=== PATIENT | female | born 1955 | race Two or more races ===

== ENCOUNTER → 2018-09-14 | Outpatient (CLI) | payer MEDICARE, BC ==
[~2018-09-14] MED LIST: GABA100C14 PO; HYDR-3498 PO
--- NOTE | 2018-09-14 12:21 | PN ---
Date/Time of Note Date/Time of Note DATE: 09/14/18 TIME: 12:14 Assessment/Plan VTE Prophylaxis Pharmacological prophylaxis: NA/contraindicated Pharm contraindication: low risk/ambulating Assessment/Plan Assessment/Plan 63-year-old female with advanced osteoarthritis of her knees. The right knee is worse than the left. She has failed conservative treatment including inje ctions, medications and physical therapy for the past 6 months. Her walking ability is limited to 1-2 blocks. She has reached a point where she would like to proceed with surgical treatment. Total knee replacement was discussed. Implant materials and surgical techniques were discussed. Potential risks and benefits discussed. The patient will be scheduled for right total knee replacement in the near future Subjective 24 Hr Interval Summary Free Text/Dictation Shyla is a 63-year-old female who is here for evaluation of right knee pain. The patient reports that she had bilateral knee pain for a while, left knee was worse a few months ago. The patient had bariatric surgery and this resulted in decreased left knee pain. The right knee however has continued to worsen. There is swelling and stiffness of the right knee associated with the pain. Pain is worse with weightbearing activity. Pain is not improved with injections and medications over the past 6 months. There is no history of trauma. The patient is here for further management. She does give a history of previous right knee surgery probably arthroscopy Additional Comments Past history is significant for right knee and right shoulder surgery as well as gastric bypass Medications include gabapentin 300 mg 3 times a day Allergies none Review of systems is positive for GI reflux and knee pain, negative for cardiac or pulmonary problems Exam/Review of Systems Vital Signs Vitals Vital signs show height 5 foot 7, weight 197, temperature 98 degrees heart rate 80 Exam Examination shows a pleasant female. She is awake alert and oriented. The patient is walking with the help of a cane and has a mild limp on her right side. Both knees have mild varus deformities. Both knees have medial joint line tenderness. Range of motion of the knees is 10-95 degrees. There is crepitus with range of motion. There is no instability and no neurovascular deficit. X-rays of both knees were done today and show advanced osteoarthritis with complete loss of medial joint space and osteophyte formation. Right knee is worse than the left. DERIC RODRIGUEZ Sep 14, 2018 12:21
--- NOTE | 2018-09-14 20:33 | RADRPT ---
PROCEDURE: XR Knees. CLINICAL INDICATION: Knee pain TECHNIQUE: Three views of the bilateral knees are available for review. COMPARISON: CR KNEE 08/02/2015 FINDINGS: Right knee: Marginal osteophyte formation and subchondral sclerosis seen at all 3 compartments. Mod erate narrowing is seen at the lateral femorotibial compartment. Moderate to severe narrowing is see n at the medial and severe narrowing at the at the patellofemoral compartments. No acute osseous abn ormality. Small joint effusion. Left knee: Marginal osteophyte formation and subchondral sclerosis seen at all 3 compartments. Moder ate narrowing is seen at the lateral femorotibial compartment with interval progression. Severe millan lofemoral compartment narrowing is also seen. Moderate severe narrowing is seen at the medial femorot ibial compartment. The patellae are located. IMPRESSION: 1. Tricompartmental of bilateral knee arthrosis, predominant and severe at the patellofemoral compar tment. 2. No fracture or dislocation is seen. 3. Small right joint effusion. RPTAT: [facility]U .Ashok Garcia MD, Date Time Electronically viewed and signed by .Ashok Garcia MD, on 09/14/2018 20:32 .d/
== END | disposition home or self-care (01) ==
LOC: HKI 11:54
PROVIDERS: ATTEND Orthopaedic Surgery
DX: M17.0 Bilateral primary osteoarthritis of knee (principal)
CPT/HCPCS: G0463

== ENCOUNTER → 2018-10-12 | Outpatient (CLI) | payer MEDICARE, BC ==
[~2018-10-12] MED LIST changes: +FLUT16SP17 NASAL; +GABA300C16 PO; +SIMV20TA PO
--- NOTE | 2018-10-22 16:04 | PN ---
Date/Time of Note Date/Time of Note DATE: 10/22/18 TIME: 16:03 Assessment/Plan VTE Prophylaxis Pharmacological prophylaxis: other Assessment/Plan Assessment/Plan 63-year-old female with advanced osteoarthritis of her right knee. She is scheduled for right total knee replacement on 10/22/2018. Risks and benefits of surgical treatment have been discussed with the patient including but not limit ed to bleeding, infection, scarring and stiffness, injury to nerves and vessels, fracture, dislocation, DVT and PE, implant failure and need for further surgery. Patient understands and wishes to proceed Subjective 24 Hr Interval Summary Free Text/Dictation The patient is here for preoperative visit, she is scheduled for right total k nee replacement on 10/22/2018 DERIC RODRIGUEZ Oct 22, 2018 16:04
== END | disposition home or self-care (01) ==
LOC: HKI 14:54
PROVIDERS: ATTEND Orthopaedic Surgery
DX: Z01.818 Encounter for other preprocedural examination (principal); M17.11 Unilateral primary osteoarthritis, right knee
CPT/HCPCS: G0463

== ENCOUNTER 2018-10-22 07:18 | Inpatient (IN) | payer MEDICARE, BC ==
[2018-10-12 18:00] VITALS: BMI 31.1
[2018-10-22] VITALS (39 sets, daily range): BP systolic 80–141; BP diastolic 35–76; PULSE 54–96; RESP 12–20; Ht 170.2 cm; Wt 93.7 kg
[~2018-10-22] VITALS: Ht 170.2 cm; Wt 93.7 kg
[~2018-10-22 07:18] MED LIST changes: +CEFAZOLIN 2 GM/50 ML (PMX) 50 ML (FOR WT < 120 KG) IVPB ONE; +DEXAMETHASONE 4 MG/ML 1 ML INJ IV ONE; -FLUT16SP17 NASAL; -GABA300C16 PO; +LACTATED RINGER'S 1,000 ML IV SCH; -SIMV20TA PO; +TRANEXAMIC ACID 1GM/100ML(PMX) 100 ML AT CLOSURE X1 IVPB ONE; +TRANEXAMIC ACID 1GM/100ML(PMX) 100 ML AT INCISION X1 IVPB ONE
[2018-10-22] MEDS ORDERED: SIMV20TA PO (08:11)
[2018-10-22] MEDS ORDERED: GABA300C16 PO (08:12)
[2018-10-22] MEDS ORDERED: FLUT16SP17 NASAL (08:12)
[2018-10-22] MEDS ORDERED: GLYCOPYRROLATE 0.4 MG INJ ONE (08:37)
[2018-10-22] MEDS ORDERED: ROCURONIUM 50 MG INJ ONE (08:37)
[2018-10-22] MEDS ORDERED: CEFAZOLIN 1 GM INJ ONE (08:37)
[2018-10-22] MEDS ORDERED: PROPOFOL 20 ML ONE (08:37)
[2018-10-22] MEDS ORDERED: DEXAMETHASONE 4 MG/ML 5 ML INJ ONE (08:37)
[2018-10-22] MEDS ORDERED: MIDAZOLAM 1 MG/ML 2 ML INJ ONE (08:37)
[2018-10-22] MEDS ORDERED: ONDANSETRON 4 MG INJ ONE (08:37)
[2018-10-22] MEDS ORDERED: FENTAnyl 50 MCG/ML VIAL ONE (08:37)
[2018-10-22] MEDS ORDERED: ROPIVACAINE 0.5 % 30 ML VIAL ONE (08:38)
[2018-10-22] MEDS ORDERED: ACETAMINOPHEN 1000MG/100ML IV 100 ML IVPB SCH (09:00)
[2018-10-22] MEDS ORDERED: NEOSTIGMINE 10 MG INJ ONE (09:00)
[2018-10-22] MEDS ORDERED: DESFLURANE 15 MIN ONE (09:00)
[2018-10-22] MEDS ORDERED: LIDOCAINE 2% (SDV) 5 ML INJ ONE (09:00)
--- NOTE | 2018-10-22 09:17 | HPN ---
Date/Time of Note Date/Time of Note DATE: 10/22/18 TIME: 09:17 Interval H&P Admission Note Pt. seen H&P reviewed: No system changes DERIC RODRIGUEZ Oct 22, 2018 09:17
[2018-10-22] MEDS ORDERED: SUGAMMADEX SODIUM 200 MG/2 ML VIAL IV ONE (09:21)
[2018-10-22] MEDS ORDERED: POLYMYXIN B 500000 UNIT INJ ONE (09:56)
[2018-10-22] MEDS ORDERED: BACITRACIN 50000 UNITS INJ ONE (09:57)
--- NOTE | 2018-10-22 10:11 | PREAC ---
Date/Time of Note Date/Time of Note DATE: 10/22/18 TIME: 10:09 Anesthesia Eval and Record Evaluation Time Pre-Procedure Interview DATE: 10/22/18 TIME: 10:09 Age 63 Sex female NPO: 8 hrs Preoperative diagnosis RIGHT KNEE PRIMARY OA Planned procedure RIGHT TOTAL KNEE ARTHROPLASTY Past Medical History Past Medical History: Includes Cardio: Dyslipidemia Pulm: Smoking Hx, COPD, Asthma GI: Obesity Surgery & Anesthesia Issues No known issue Meds Anticoagulation: No Beta Rosa M within 24 hr: No Reason Beta Rosa M not given: Pt. not on B-Rosa M Reported Medications Gabapentin* (Gabapentin*) 300 Mg Capsule, 300 MG PO TID, #90 CAP 10/22/18 Fluticasone Propionate* (Fluticasone Propionate* Nasal) 50 Mcg/[place] - 16 Gm S pray.susp, 1 SPRAY NASAL DAILY, #1 BOTTLE TO EACH NOSTRIL 10/22/18 Discontinued Reported Medications Simvastatin* (Zocor*) 20 Mg Tablet, 20 MG PO QHS, #30 TAB 10/22/18 Gabapentin* (Gabapentin*) Unknown Strength Capsule, PO, #90 CAP 10/12/18 Discontinued Scripts Hydrocodone Bit-Acetaminophen* ([place]*) 5-325 Mg Tab, 1 TAB PO Q6 PRN for PAIN, #15 TAB Prov:MAE LAI PA-C 04/03/15 Current Medications Influenza Virus Vaccine Quadrival (Fluzone) 0.5 ml ONCE ONCE IM* ; Start 10/23/18 at 10:00; Stop 10/23/18 at 10:01 Lactated Ringer's 1,000 ml @ 25 mls/hr Q24H IV Last administered on 10/22/18at 08:10; Admin Dose 25 MLS/HR; Start 10/22/18 at 06:00; Stop 10/22/18 at 18:00 Meds reviewed: Yes Allergies Coded Allergies: No Known Allergy (Unverified , 10/22/18) Allergies Reviewed: Yes Labs/Studies Labs Reviewed: Reviewed by anesthesiologist Blood Bank Test 10/22/18 08:48 Antibody Screen NEGATIVE Blood Type O POSITIVE test: N/A Studies: ECG (NL), CXR (WNL) Pre-procedure Exam Last vitals Vital Signs Date Temp Pulse Resp B/P (MAP) Pulse Ox O2 O2 Flow FiO2 Time Delivery Rate 10/22/18 97.5 54 16 99/63 (75) 100 Room Air 08:25 Airway: Adequate mouth opening, Adequate thyromental dist Mallampati: Mallampati II Teeth: Normal Lung: Normal Heart: Normal ASA Physical Status ASA physical status: 2 Emergency: None Planned Anesthetic General/MAC: ETT Neuraxial: Spinal Nerve block: Femoral (right) Planned Pain Management Sub-arachniod narcotics, Single shot nerve block, Parenteral pain med Pre-operative Attestations Prior to commencing anesthesia and surgery, the patient was re-evaluated, there was verification of: *The patient's identity *The results of appropriate recent lab work and preoperative vital signs *The above evaluation not changing prior to induction *Anesthetic plan, risk benefits, alternative and complications discussed with patient/family; questions answered; patient/family understands, accepts and wishes to proceed. Seymour العراقي M.D. Oct 22, 2018 10:11
[2018-10-22] MEDS ORDERED: MIDAZOLAM 1 MG/ML 2 ML INJ IV PRN (10:30)
[2018-10-22] MEDS ORDERED: hydrALAzine 20 MG INJ IV PRN (10:30)
[2018-10-22] MEDS ORDERED: OXYCODONE/ACETAMINOPHEN (5/325) TAB PO PRN ×2 (10:30)
[2018-10-22] MEDS ORDERED: ONDANSETRON 4 MG INJ IV PRN ×2 (10:30)
[2018-10-22] MEDS ORDERED: ALBUTEROL 0.083% (NEB) 2.5 MG/3 ML AMP HHN PRN (10:30)
[2018-10-22] MEDS ORDERED: KETOROLAC 15 MG INJ IV PRN ×2 (10:30→12:30)
[2018-10-22] MEDS ORDERED: MEPERIDINE 25 MG INJ IV PRN (10:30)
[2018-10-22] MEDS ORDERED: ZOLPIDEM 5 MG TAB PO PRN (10:30)
[2018-10-22] MEDS ORDERED: NALOXONE (0.4 MG/ML) INJ IV PRN ×2 (10:30→12:30)
[2018-10-22] MEDS ORDERED: DIPHENHYDRAMINE 50 MG INJ IV PRN ×2 (10:30)
[2018-10-22] MEDS ORDERED: HYDROmorphONE 0.5 MG/0.5 ML SYG IV PRN ×2 (10:30)
[2018-10-22] MEDS ORDERED: TRIMETHOBENZAMIDE 100 MG/ML VIAL IM PRN ×2 (10:30)
[2018-10-22] MEDS ORDERED: EPHEDrine SULFATE 50 MG/5 ML SYG IV PRN (10:30)
[2018-10-22] MEDS ORDERED: KETOROLAC 30 MG INJ IV PRN (10:30)
[2018-10-22] MEDS ORDERED: NALBUPHINE HCL (10 MG/1 ML) INJ IV PRN (10:30)
[2018-10-22] MEDS ORDERED: HYDROmorphONE 1 MG/5 ML IV SYRINGE IV PRN ×3 (10:30)
[2018-10-22] MEDS ORDERED: IPRATROPIUM (NEB) 0.5 MG/2.5 ML AMP HHN PRN (10:30)
[2018-10-22] MEDS ORDERED: FENTAnyl 50 MCG/ML VIAL IV PRN ×3 (10:30)
[2018-10-22] MEDS ORDERED: LABETALOL HCL 20MG INJ IV PRN (10:30)
[2018-10-22] MEDS ORDERED: morphine SULFATE/PF (10 MG/10 ML) INJ ONE (10:37)
--- NOTE | 2018-10-22 12:11 | SIPON ---
Date/Time of Note Date/Time of Note DATE: 10/22/18 TIME: 12:10 Operative Report Preoperative Diagnosis Right knee osteoarthritis Postoperative Diagnosis Same Operation/Procedure Performed Right total knee replacement Surgeon see signature line assistant quality manager LA Sweet Anesthesia: spinal Estimated blood loss: 150 - 200 ml's Transfusion Required none Specimen Bone Grafts/Implants Attune knee, femur, size 5 tibia, 6 mm polyethylene and 35 patella Complications none DERIC RODRIGUEZ Oct 22, 2018 12:11
[2018-10-22] MEDS ORDERED: MAGNESIUM HYDROXIDE 30ML CUP PO PRN (12:30)
[2018-10-22] MEDS ORDERED: oxyCODONE 5 MG TAB PO PRN ×2 (12:30)
[2018-10-22] MEDS ORDERED: NACL 0.9% 3 ML SYG IV SCH (12:30)
[2018-10-22] MEDS: GABAPENTIN 100 MG CAP PO SCH ×2 (13:00→20:22)
--- NOTE | 2018-10-22 13:04 | PAC ---
Date/Time of Note Date/Time of Note DATE: 10/22/18 TIME: 13:04 Post-Anesthesia Notes Post-Anesthesia Note Last documented vital signs Vital Signs Date Temp Pulse Resp B/P (MAP) Pulse Ox O2 O2 Flow FiO2 Time Delivery Rate 10/22/18 97.9 12:49 10/22/18 54 16 99/63 (75) 100 Room Air 08:25 Activity: WNL Respiratory function: WNL Cardiovascular function: WNL Mental status: Baseline Pain reasonably controlled: Yes Hydration appropriate: Yes Nausea/Vomiting absent: Yes Seymour العراقي M.D. Oct 22, 2018 13:04
[2018-10-22] MEDS: CEFAZOLIN 2 GM/50 ML (PMX) 50 ML IVPB SCH ×2 (13:39→20:22)
[2018-10-22] MEDS: LACTATED RINGER'S 1,000 ML IV SCH (15:52)
--- NOTE | 2018-10-22 15:58 | OPR ---
Date/Time of Note Date/Time of Note DATE: 10/22/18 TIME: 15:56 Operative Report Procedure Date: Oct 22, 2018 Preoperative Diagnosis Right knee osteoarthritis Postoperative Diagnosis Same Operation/Procedure Performed Right total knee replacement Surgeon see signature line Cloth Presser LA Sweet Anesthesia Type: spinal Estimated Blood Loss: 150 - 200 ml's Transfusion none Specimen Bone Grafts/Implants Attune knee, size 6 femur, size 5 tibia, 6 mm polyethylene, 35 patella Tubes/Drains None Complications none Pt Condition Post Procedure: stable Disposition: PACU Indications Patient is a 63-year-old female with advanced arthritis of her right knee Procedure Description Right knee was prepped and draped in usual manner. Anterior incision was made. A mid vastus approach was made. Using intramedullary alignment, the distal femoral cut was made in 5 degrees of valgus. The femur was measured to be a size 6 from the [employer] knee system. With the 6 cutting block was placed. Anterior posterior and chamfer cuts were made. A notch was cut in the distal femur to accommodate the posterior stabilized femoral component. The tibia was cut using external alignment and patella cut using a freehand technique. Trials were inserted and found to be well fitting. The knee had full range of motion with good balance and tracking. Trials were removed. The knee was injected with pain cocktail. Hemostasis was confirmed with electrocautery and aqua mantis. The knee was thoroughly irrigated and final components cemented in place. The 6 narrow femur, size 5 tibia, 6 mm polyethylene and 35 patella. This resulted in full range of motion of the knee with good balance and tracking. The knee was closed in layers using #1 strata fix for deep fascia, 2- 0 Vicryl for subcutaneous tissue and 3-0 Monocryl for the skin. Patient was transferred to the recovery room in stable condition DERIC RODRIGUEZ Oct 22, 2018 15:58
[2018-10-23] VITALS: BP 91/51; PULSE 78; RESP 18
[2018-10-23] MEDS: LACTATED RINGER'S 1,000 ML IV SCH ×2 (00:41→13:11)
[2018-10-23 02:42] VITALS: BP 100/60; PULSE 75; RESP 17
[2018-10-23] MEDS: CEFAZOLIN 2 GM/50 ML (PMX) 50 ML IVPB SCH (04:53)
[2018-10-23 04:55] VITALS: BP 94/58; PULSE 72; RESP 18
[2018-10-23 08:17] VITALS: BP 91/56; PULSE 76; RESP 18
[2018-10-23] MEDS: GABAPENTIN 100 MG CAP PO SCH ×2 (08:58→12:56)
[2018-10-23] MEDS ORDERED: CELECOXIB 100 MG CAP PO SCH (09:00)
[2018-10-23] MEDS ORDERED: ASPIRIN (EC) 325 MG TAB PO SCH (09:00)
[2018-10-23] MEDS ORDERED: DOCUSATE SODIUM 100 MG CAP PO SCH (09:00)
[2018-10-23] MEDS ORDERED: ONDANSETRON 4 MG INJ IV PRN (12:30)
--- NOTE | 2018-10-23 12:35 | PN ---
Date/Time of Note Date/Time of Note DATE: 10/23/18 TIME: 12:31 Assessment/Plan VTE Prophylaxis Risk score (from Ns)>0 risk: 8 SCD applied (from Nsg): Yes Pharmacological prophylaxis: other (asa per ortho) Lines/Catheters IV Catheter Type (from Nrs): Peripheral IV Assessment/Plan Result Diagram: 10/23/18 0436 10/23/18 0436 Results 24hrs Laboratory Tests Test 10/23/18 04:36 White Blood Count 13.5 H Red Blood Count 3.65 L Hemoglobin 10.9 L Hematocrit 33.7 L Mean Corpuscular Volume 92.3 Mean Corpuscular Hemoglobin 29.9 Mean Corpuscular Hemoglobin Concent 32.3 Red Cell Distribution Width 13.3 Platelet Count 196 Mean Platelet Volume 11.0 H Immature Granulocytes % 0.400 Neutrophils % 77.2 H Lymphocytes % 15.5 Monocytes % 6.7 Eosinophils % 0.1 Basophils % 0.1 Nucleated Red Blood Cells % 0.0 Immature Granulocytes # 0.050 H Neutrophils # 10.4 H Lymphocytes # 2.1 Monocytes # 0.9 Eosinophils # 0.0 Basophils # 0.0 Nucleated Red Blood Cells # 0.0 Sodium Level 139 Potassium Level 4.4 Chloride Level 109 Carbon Dioxide Level 26 Anion Gap 4 L Blood Urea Nitrogen 15 Creatinine 0.47 Est Glomerular Filtrat Rate mL/min > 60 Glucose Level 104 Calcium Level 9.1 Subjective 24 Hr Interval Summary Free Text/Dictation 63 yr old woman, post rt tkr, doing very well. has been up with p.t. other history positive for bariatric surgery with good weight loss. preop meds were normal vs ok, am labs ok lungs clear, hr ok, no edema plan for dc later today per pt. thank you Exam/Review of Systems Exam Vitals Vital Signs Date Temp Pulse Resp B/P (MAP) Pulse Ox O2 O2 Flow FiO2 Time Delivery Rate 10/23/18 98.5 76 18 91/56 (68) 99 08:17 10/23/18 Room Air 02:42 Intake and Output 10/22/18 10/22/18 10/23/18 1414:59 22:59 06:59 IntakeIntake Total 2300 ml 510 ml 1450 ml BalanceBalance 2300 ml 510 ml 1450 ml Results Results 24hrs Laboratory Tests Test 10/23/18 04:36 White Blood Count 13.5 H Red Blood Count 3.65 L Hemoglobin 10.9 L Hematocrit 33.7 L Mean Corpuscular Volume 92.3 Mean Corpuscular Hemoglobin 29.9 Mean Corpuscular Hemoglobin Concent 32.3 Red Cell Distribution Width 13.3 Platelet Count 196 Mean Platelet Volume 11.0 H Immature Granulocytes % 0.400 Neutrophils % 77.2 H Lymphocytes % 15.5 Monocytes % 6.7 Eosinophils % 0.1 Basophils % 0.1 Nucleated Red Blood Cells % 0.0 Immature Granulocytes # 0.050 H Neutrophils # 10.4 H Lymphocytes # 2.1 Monocytes # 0.9 Eosinophils # 0.0 Basophils # 0.0 Nucleated Red Blood Cells # 0.0 Sodium Level 139 Potassium Level 4.4 Chloride Level 109 Carbon Dioxide Level 26 Anion Gap 4 L Blood Urea Nitrogen 15 Creatinine 0.47 Est Glomerular Filtrat Rate mL/min > 60 Glucose Level 104 Calcium Level 9.1 Medications Medication Current Medications Hydromorphone HCl (Dilaudid) 0.2 mg PACU PRN IV MILD PAIN 1-3; Start 10/22/18 at 10:30 Hydromorphone HCl (Dilaudid) 0.4 mg PACU PRN IV MOD PAIN 4-6; Start 10/22/18 at 10:30 Hydromorphone HCl (Dilaudid) 0.6 mg PACU PRN IV SEVERE PAIN 7-10; Start 10/22/18 at 10:30 Fentanyl (Sublimaze) 25 mcg PACU ORDER PRN IV MILD PAIN 1-3; Start 10/22/18 at 10:30 Fentanyl (Sublimaze) 50 mcg PACU ORDER PRN IV MOD PAIN 4-6; Start 10/22/18 at 10:30 Fentanyl (Sublimaze) 75 mcg PACU ORDER PRN IV SEVERE PAIN 7-10; Start 10/22/18 at 10:30 Oxycodone/ Acetaminophen (Percocet (5/ 325)) 1 tab PACU ORDER PRN PO .PAIN 1-5; Start 10/22/18 at 10:30 Oxycodone/ Acetaminophen (Percocet (5/ 325)) 2 tab PACU ORDER PRN PO .PAIN 6-10; Start 10/22/18 at 10:30 Ondansetron HCl (Zofran Inj) 4 mg PACU ORDER PRN IV NAUSEA/VOMITING; Start 10/22/18 at 10:30 Trimethobenzamide HCl (Tigan) 200 mg PACU ORDER PRN IM NAUSEA/VOMITING; Start 10/22/18 at 10:30 Labetalol HCl (Labetalol) 5 mg PACU ORDER PRN IV HIGH BLOOD PRESSURE; Start 10/22/18 at 10:30 Hydralazine HCl (Apresoline) 5 mg PACU ORDER PRN IV HIGH BLOOD PRESSURE; Start 10/22/18 at 10:30 Ephedrine Sulfate 5 mg PACU ORDER PRN IV BLOOD PRESSURE SUPPORT; Start 10/22/18 at 10:30 Albuterol (Proventil 0.083% (Neb)) 2.5 mg PACU ORDER PRN HHN .WHEEZING; Start 10/22/18 at 10:30 Ipratropium Matthews (Atrovent 0.02% (Neb)) 0.5 mg PACU ORDER PRN HHN .WHEEZING; Start 10/22/18 at 10:30 Meperidine HCl (Demerol) 25 mg PACU ORDER PRN IV .RIGORS; Start 10/22/18 at 10:30 Diphenhydramine HCl (Benadryl) 25 mg PACU ORDER PRN IV .PRURITUS; Start 10/22/18 at 10:30 Midazolam HCl (Versed) 0.5 mg PACU ORDER PRN IV .ANXIETY; Start 10/22/18 at 10:30 Lactated Ringer's 1,000 ml @ 80 mls/hr [id number] IV Last administered on 10/22/18at 15:52; Admin Dose 80 MLS/HR; Start 10/22/18 at 12:11 IV Flush (NS 3 ml) 3 ml PER PROTOCOL IV ; Start 10/22/18 at 12:30 Oxycodone HCl (Roxicodone) 10 mg Q4H PRN PO .PAIN; Start 10/22/18 at 12:30 Oxycodone HCl (Roxicodone) 5 mg Q4H PRN PO .PAIN; Start 10/22/18 at 12:30 Ketorolac Tromethamine (Toradol) 15 mg Q6H PRN IV .PAIN; Start 10/22/18 at 12:30 Ondansetron HCl (Zofran Inj) 4 mg Q4H PRN IV NAUSEA/VOMITING; Start 10/23/18 at 12:30 Celecoxib (Celebrex) 100 mg BID PO Last administered on 10/23/18at 08:58; Admin Dose 100 MG; Start 10/23/18 at 09:00 Gabapentin (Neurontin) 100 mg TID PO Last administered on 10/23/18at 08:58; Admin Dose 100 MG; Start 10/22/18 at 13:00 Pantoprazole (Protonix Tab) 40 mg DAILY@06 PO ; Start 10/24/18 at 06:00 Docusate Sodium (Colace) 200 mg BID PO Last administered on 10/23/18at 08:58; Admin Dose 200 MG; Start 10/23/18 at 09:00; Stop 10/26/18 at 08:59 Magnesium Hydroxide (Milk Of Mag) 30 ml HS PRN PO .CONSTIPATION; Start 10/22/18 at 12:30 Naloxone HCl (Narcan) 0.2 mg Q2M PRN IV .RESP RATE; Start 10/22/18 at 12:30 Aspirin (Ecotrin) 325 mg BID PO Last administered on 10/23/18at 08:58; Admin Dose 325 MG; Start 10/23/18 at 09:00 MADDIE JOHNSON MD Oct 23, 2018 12:35
--- NOTE | 2018-10-23 15:24 | PN ---
Date/Time of Note Date/Time of Note DATE: 10/23/18 TIME: 15:23 Assessment/Plan Lines/Catheters IV Catheter Type (from Nrsg): Peripheral IV Assessment/Plan Assessment/Plan Progressing well after TKA, home today, follow up in 2 weeks. Subjective 24 Hr Interval Summary doing well after TKA, pleased with pain control Exam/Review of Systems Vital Signs Vitals Vital Signs Date Temp Pulse Resp B/P (MAP) Pulse Ox O2 O2 Flow FiO2 Time Delivery Rate 10/23/18 98.5 76 18 91/56 (68) 99 08:17 10/23/18 Room Air 02:42 Intake and Output 10/22/18 10/22/18 10/23/18 1515:00 23:00 07:00 IntakeIntake Total 2300 ml 690 ml 1270 ml BalanceBalance 2300 ml 690 ml 1270 ml Exam Free Text/Dictation dressing intact, no NV deficit. Results Result Diagram: 10/23/18 0436 10/23/18 0436 DERIC RODRIGUEZ Oct 23, 2018 15:24
[2018-10-24] MEDS ORDERED: PANTOPRAZOLE (EC) 40 MG TAB PO SCH (06:00)
== END 2018-10-23 17:20 | disposition home health service (06) | DRG 470 ==
LOC: REC 07:18 → MS1 14:56
PROVIDERS: ADMIT Orthopaedic Surgery; ATTEND Orthopaedic Surgery
PROC: 0SRC0J9 Replacement of Right Knee Joint with Synthetic Substitute, Cemented, Open Approach (ICD-10-PCS; principal; 2018-10-22 10:00)
DX: M17.11 Unilateral primary osteoarthritis, right knee (principal); E66.9 Obesity, unspecified; F17.200 Nicotine dependence, unspecified, uncomplicated; Z68.32 Body mass index [BMI] 32.0-32.9, adult
CPT/HCPCS: 73560; 80048; 85025; 86850; 86900; 86901; 87081; 88304; 88311; 90686; 97116; 97161; 97530; C1713; C1776; J0131; J0171; J0690; J0735; J1100; J1885; J2250; J2274; J2405; J2710; J2795; J3010; J7120

== ENCOUNTER → 2018-11-09 | Outpatient (CLI) | payer MEDICARE, BC ==
[~2018-11-09] MED LIST changes: -CEFAZOLIN 2 GM/50 ML (PMX) 50 ML (FOR WT < 120 KG) IVPB ONE; -DEXAMETHASONE 4 MG/ML 1 ML INJ IV ONE; +FLUT16SP17 NASAL; -GABA100C14 PO; +GABA300C16 PO; -HYDR-3498 PO; -LACTATED RINGER'S 1,000 ML IV SCH; -TRANEXAMIC ACID 1GM/100ML(PMX) 100 ML AT CLOSURE X1 IVPB ONE; -TRANEXAMIC ACID 1GM/100ML(PMX) 100 ML AT INCISION X1 IVPB ONE
--- NOTE | 2018-11-09 12:08 | PN ---
Date/Time of Note Date/Time of Note DATE: 11/09/18 TIME: 12:07 Assessment/Plan VTE Prophylaxis Pharmacological prophylaxis: other Assessment/Plan Assessment/Plan The patient is progressing well after right knee replacement. She is advised to continue home PT for the next few weeks and follow-up in 4 weeks. At that time outpatient PT will be prescribed. She is advised to switch to anti-inflammatory medications and taper the narcotics Subjective 24 Hr Interval Summary Free Text/Dictation 63-year-old female who is two-week status post right total knee replacement. The patient is progressing well. She does report pain. There is no history of fever or chills Exam/Review of Systems Exam Exam Examination shows a healed incision on the right knee. Mild swelling is noted. Range of motion is 10-95 degrees. Alignment is satisfactory. X-rays of the right knee show total knee replacement in good position with no evidence of loosening DERIC RODRIGUEZ Nov 09, 2018 12:08
--- NOTE | 2018-11-10 07:43 | RADRPT ---
PROCEDURE: XR knee CLINICAL INDICATION: Pain TECHNIQUE: Weightbearing AP and lateral views of the right knee COMPARISON: Intraoperative radiographs of the right knee 10/22/2018 FINDINGS: Total right knee arthroplasty. No periprosthetic lucency or fracture. Alignment is intact. Small joint effusion. Small superior patellar enthesophyte. Soft tissue fullness in the anterior knee . IMPRESSION: 1. Status post total right knee arthroplasty without radiographic evidence of hardware complication. 2. Small joint effusion. 3. Mild soft tissue fullness in the anterior knee. RPTAT: BBDD Physician Andrew Date Time Electronically viewed and signed by Physician Andrew on 11/10/2018 07:43 MARIANA/
== END | disposition home or self-care (01) ==
LOC: HKI 10:31
PROVIDERS: ATTEND Orthopaedic Surgery
DX: Z09 Encounter for follow-up examination after completed treatment for conditions other than malignant neoplasm (principal); Z96.651 Presence of right artificial knee joint